=== PATIENT | female | born 1970 | race American Indian/Alaskan Native ===

== ENCOUNTER 2017-04-06 16:07 | Emergency (ER) | payer SELFPAY ==
[2017-04-06 17:03] VITALS: BP 137/91
[2017-04-06 18:17] LABS: Bacteria,Urine 3+ /HPF (Negative); Bilirubin,Urine NEG (Negative); Blood,Urine LG (Negative); Ketones,Urine NEG (Negative); Leukocyte Esterase,Urine SM (Negative); Mucus,Urine FEW /HPF; Nitrite,Urine NEG (Negative); Urobilinogen,Urine < 2.0 mg/dL (<2.0)
[2017-04-06 18:18] LABS: RBC,Urine > 182.0 /HPF (0.0-6.0)
--- NOTE | 2017-04-06 18:45 | Emergency Department Report ---
ED Female HPI - General Chief complaint: Urogenital-Female Stated complaint: BLOOD IN URINE /LIGHT HEADED Time Seen by Provider: 04/06/17 18:43 Source: patient Mode of arrival: Ambulatory Limitations: No Limitations - History of Present Illness Initial comments: Patient here complaining in that there is blood in her urine. She denies any abdominal pain or urinary burning but reports that there is slight odor to her urine and that she is having urgency which always turn into a urinary tract infection. She reports that she feels lightheaded. She says she has been drinking a lot of water so she thinks she is dehydrated. She said her last menstrual period was 03/30/2017 but became she is going through menopause sometimes she gets them twice a month and she thinks that she is on her period at present. Her pain scale of 0-10. Denies any nausea or vomiting. Denies any chest pain or shortness of breath. Denies any vaginal discharge or back pain. Denies any fever or chills. Patient denies any history of kidney stones and denies that she is having flank pain. MD Complaint: vaginal bleeding, other (Urine with positive odor and she reports urinary urgency) -: This morning Severity scale (0 -10): 0 Are you Now?: No Associated Symptoms: vaginal bleeding, other (urgency and positive urine odor). denies: vaginal discharge, abdominal pain, nausea/vomiting, fever/chills, headaches, loss of appetite, dysuria, hematuria, rash, seizure, shortness of breath, syncope, weakness - Related Data Sexually active: Yes Previous Rx's Medication Instructions Recorded Last Taken Type Nitrofurantoin [place]/M-Cryst 100 mg PO Q12HR #14 capsule 04/06/17 Unknown Rx [Macrobid CAP] Allergies Allergy/AdvReac Type Severity Reaction Status Date / Time Penicillins Allergy Anaphylaxis Verified 04/06/17 19:12 ED Review of Systems ROS: Stated complaint: BLOOD IN URINE /LIGHT HEADED Other details as noted in HPI Comment: All other systems reviewed and negative Constitutional: denies: chills, fever Respiratory: no symptoms reported Cardiovascular: denies: chest pain, palpitations, edema, syncope Gastrointestinal: denies: abdominal pain, nausea, vomiting, diarrhea, constipation, hematemesis, hematochezia Genitourinary: urgency, hematuria, abnormal menses. denies: dysuria, frequency , discharge, dyspareunia Skin: denies: rash Neurological: denies: headache, weakness, numbness, paresthesias, confusion, abnormal gait ED Past Medical Hx - Past Medical History Previous Medical History?: No - Surgical History Past Surgical History?: Yes Additional Surgical History: C section - Family History Family history: no significant - Social History Smoking Status: Heavy Tobacco Smoker Substance Use Type: None, Marijuana - Medications Home Medications: Home Medications Medication Instructions Recorded Confirmed Last Taken Type Nitrofurantoin [place]/M-Cryst 100 mg PO Q12HR #14 capsule 04/06/17 Unknown Rx [Macrobid CAP] ED Physical Exam - General Limitations: No Limitations General appearance: alert, in no apparent distress - Head Head exam: Present: atraumatic, normocephalic, normal inspection - Eye Eye exam: Present: normal appearance, PERRL, EOMI Pupils: Present: normal accommodation - ENT ENT exam: Present: normal exam, normal orophraynx, mucous membranes moist - Neck Neck exam: Present: normal inspection, full ROM. Absent: tenderness, meningismus, lymphadenopathy, thyromegaly - Respiratory Respiratory exam: Present: normal lung sounds bilaterally. Absent: respiratory distress, chest wall tenderness - Cardiovascular Cardiovascular Exam: Present: normal rhythm, bradycardia, normal heart sounds - GI/Abdominal GI/Abdominal exam: Present: soft, normal bowel sounds. Absent: distended, tenderness, guarding, rebound, rigid - Extremities Exam Extremities exam: Present: normal inspection, full ROM, normal capillary refill. Absent: tenderness, pedal edema, joint swelling, calf tenderness - Back Exam Back exam: Present: normal inspection, full ROM. Absent: tenderness, CVA tenderness (R), CVA tenderness (L), muscle spasm, paraspinal tenderness, vertebral tenderness, rash noted - Neurological Exam Neurological exam: Present: alert, oriented X3, normal gait, reflexes normal. Absent: motor sensory deficit - Psychiatric Psychiatric exam: Present: normal affect, normal mood - Skin Skin exam: Present: warm, dry, intact, normal color. Absent: rash ED Course Vital Signs 04/06/17 16:54 Temperature 98.6 F Pulse Rate 56 L Respiratory 18 Rate Blood Pressure 137/91 O2 Sat by Pulse 100 Oximetry - Reevaluation(s) Reevaluation #1: 04/06/17 19:18 She remained stable throughout ED course. ED Medical Decision Making - Lab Data Lab Results 04/06/17 Range/Units 17:53 Urine Color Red (Yellow) Urine Turbidity Slightly-cloudy (Clear) Urine pH 8.0 H (5.0-7.0) Ur Specific [place] 1.009 (1.003-1.030) Urine Protein 30 mg/dl (Negative) mg/dL Urine Glucose (UA) Neg (Negative) mg/dL Urine Ketones Neg (Negative) mg/dL Urine Blood Lg (Negative) Urine Nitrite Neg (Negative) Urine Bilirubin Neg (Negative) Urine Urobilinogen < 2.0 (<2.0) mg/dL Ur Leukocyte Esterase Sm (Negative) Urine WBC (Auto) 7.0 H (0.0-6.0) /HPF Urine RBC (Auto) > 182.0 (0.0-6.0) /HPF U Epithel Cells (Auto) 4.0 (0-13.0) /HPF Urine Bacteria (Auto) 3+ (Negative) /HPF Urine Mucus Few /HPF Patient with positive urinary tract infection which shows large amount of blood and she is on her period at present she has some protein in her urine. Urine culture sent and pending - Medical Decision Making ED course: here report urinary urgency, foul smelling odor and blood in her urine but also says she is on her period. She denies any abdominal, back pain or flank pain. Urine is positive for acute cystitis with hematuria. This was communicated to the patient and I told her that I'll put her on antibiotic and she is to follow-up with her primary care physician next week and if she does not have a primary care physician she can follow up at [facility]. Labs: The lab section for urinalysis results Assessment/plan 1. Acute cystitis with hematuria 2. Urinary urgency discharged home to follow up with her primary care physician on Tuesday to call tomorrow to schedule an appointment. She is also given prescription for Macrobid for urinary tract infection. Patient encouraged to increase her fluid intake. Critical care attestation.: If time is entered above; I have spent that time in minutes in the direct care of this critically ill patient, excluding procedure time. ED Disposition Clinical Impression: Acute cystitis with hematuria, Urinary urgency Disposition: TO HOME OR SELFCARE Is pt being admited?: No Does the pt Need Aspirin: No Condition: Stable Instructions: Urinary Tract Infection in Women (ED) Additional Instructions: Please increase her fluid intake to 2-3 L of water per day Take Antibiotic as prescribed Prescriptions: Nitrofurantoin [place]/M-Cryst [Macrobid CAP] 100 mg PO Q12HR #14 capsule Referrals: [facility] [Outside] - 04/11/17 Forms: Work/School Release Form(ED)
== END 2017-04-06 19:27 | disposition home or self-care (01) ==
LOC: ED 16:07
DX: N30.01 Acute cystitis with hematuria (principal); R39.15 Urgency of urination; F17.200 Nicotine dependence, unspecified, uncomplicated; F12.10 Cannabis abuse, uncomplicated
CPT/HCPCS: 81001; 87086; 99283